=== PATIENT | male | born 1990 | race African-American/Black ===

== ENCOUNTER 2019-12-09 21:25 | Emergency (ER) | payer OTHER ==
[~2019-12-09] VITALS: Ht 185.4 cm; Wt 64.0 kg
[2019-12-09 22:21] VITALS: BP 124/54
[2019-12-09] MEDS ORDERED: ZOFRAN ODT4 MG DISSOLVE (22:25)
== END 2019-12-09 22:41 | disposition home or self-care (01) ==
LOC: ER 21:25
DX: B34.9 Viral infection, unspecified (principal); R19.7 Diarrhea, unspecified; F17.210 Nicotine dependence, cigarettes, uncomplicated